=== PATIENT | female | born 1985 | race Caucasian/White ===

== ENCOUNTER 2024-03-01 06:47 | Emergency (ER) | payer BC ==
[~2024-03-01] VITALS: Ht 162.6 cm; Wt 63.6 kg
[2024-03-01 06:51] VITALS: TEMP 98.4
[2024-03-01] MEDS ORDERED: LR 1,000 ML IV ONE (07:15)
[2024-03-01] MEDS ORDERED: Morphine 4 MG/ML VIAL IV ONE (07:15)
[2024-03-01] MEDS ORDERED: Ondansetron 4 MG/2 ML VIAL IV ONE (07:15)
[2024-03-01 07:41] LABS: BASO # 0.1 K/mm3 (0.0-0.2); BASO % 0.5 % (0.0-2.0); EOS # 0.3 K/mm3 (0.0-0.7); GRAN # 8.9 K/mm3 (1.4-6.5); GRAN % 67.2 % (42.2-75.2); HEMOGLOBIN 13.5 g/dl (12.5-16.0); LYMPH # 3.2 K/mm3 (1.2-3.4); LYMPH % 24.1 % (20.0-51.0); MEAN CELL VOLUME 84 fl (80.0-100.0); MEAN CORPUSCULAR HEMOGLOBIN 28 pg (27-31); MEAN CORPUSCULAR HGB CONC 34 g/dl (33.0-37.0); MEAN PLATELET VOLUME 9.4 fl (7.4-10.4); MONO # 0.8 K/mm3 (0.1-0.6); MONO % 5.8 % (1.7-9.3); PLATELET COUNT 299 K/mm3 (130-400); RED BLOOD COUNT 4.75 M/mm3 (4.10-5.30); REDCELL DISTRIBUTION WIDTH-CV 12.8 % (11.5-14.5)
[2024-03-01 07:42] LABS: PH 6.5 (5.0-8.5); URINE APPEARANCE CLEAR (CLEAR/HAZY); URINE BLOOD NEGATIVE (NEGATIVE); URINE COLOR YELLOW (YELLOW); URINE GLUCOSE NEGATIVE (NEGATIVE); URINE KETONE NEGATIVE (NEGATIVE); URINE NITRATE NEGATIVE (NEGATIVE); URINE PROTEIN(semi-quant) NEGATIVE (NEGATIVE); URINE UROBILINOGEN 0.2 E.U/dL (0.2-1.0)
[2024-03-01 08:10] LABS: ALBUMIN 3.8 g/dL (3.5-5.0); C-REACTIVE PROTEIN 0.25 mg/dL (0.00-0.50); CALCIUM 9.4 mg/dL (8.4-10.2); CREATININE, serum 0.74 mg/dL (0.57-1.11); POTASSIUM 3.5 mEq/L (3.5-4.5); TOTAL PROTEIN 7.2 g/dl (6.2-8.1)
[2024-03-01 08:24] LABS: BILIRUBIN,TOTAL 0.2 mg/dL (0.2-1.2)
[2024-03-01 08:44] VITALS: BP 118/78; PULSE 73
[2024-03-01 09:17] LABS: COLLECTION METHOD CLEAN CATCH
== END 2024-03-01 09:02 | disposition home or self-care (01) ==
LOC: COL.ER 06:47
PROVIDERS: Family Medicine
DX: K80.50 Calculus of bile duct without cholangitis or cholecystitis without obstruction (principal); D72.829 Elevated white blood cell count, unspecified
CPT/HCPCS: J2270; J2405; J7120

== ENCOUNTER 2024-03-03 07:33 | Day surgery (SDC) | payer BC ==
[~2024-03-03] VITALS: Ht 160 cm; Wt 77.8 kg
[~2024-03-03 07:33] MED LIST: LR 1,000 ML IV SCH
[2024-03-03] MEDS ORDERED: Lidocaine PF 2% (20 MG/ML) 5 ML VIAL ONE (08:55)
[2024-03-03] MEDS ORDERED: fentaNYL 50 MCG/ML 2 ML VIAL ONE (08:55)
[2024-03-03] MEDS ORDERED: Rocuronium 50 MG/5 ML Multi-Dose VIAL ONE (08:57)
[2024-03-03 09:16] VITALS: BP 113/79; PULSE 72; TEMP 97.8
[2024-03-03] MEDS ORDERED: fentaNYL 50 MCG/ML 1 ML SYRINGE/VIAL [PACU/SDC ONLY] IV PRN (09:45)
[2024-03-03] MEDS ORDERED: HYDROmorphone 1 MG/1 ML SYRINGE [PACU/SDC ONLY] IV PRN (09:45)
[2024-03-03] MEDS ORDERED: Ondansetron 4 MG/2 ML VIAL IV PRN ×2 (09:45→10:15)
[2024-03-03] MEDS ORDERED: hydrALAZINE 20 MG/ML 1 ML VIAL IV PRN (09:45)
[2024-03-03] MEDS ORDERED: Ondansetron 4 MG/2 ML VIAL ONE (09:49)
[2024-03-03] MEDS ORDERED: NS 10 ML IV ONE (09:49)
[2024-03-03] MEDS ORDERED: dexAMETHasone 10 MG/ML VIAL ONE (09:49)
[2024-03-03] MEDS ORDERED: Glycopyrrolate 0.2 MG/ML 1 ML VIAL ONE (09:49)
[2024-03-03] MEDS ORDERED: Morphine 4 MG/ML VIAL IV PRN (10:15)
[2024-03-03] MEDS ORDERED: NORCO 325 MG-51 TAB PO (10:23)
[2024-03-03 10:57] VITALS: BP 126/81; PULSE 66; TEMP 97.1
[2024-03-03 11:12] VITALS: BP 119/78; PULSE 60
[2024-03-03 11:27] VITALS: BP 121/72; PULSE 64
[2024-03-03 11:42] VITALS: BP 115/74; PULSE 62
--- NOTE | 2024-03-03 11:55 | NUR ---
1057 RETURNS TO ROOM 7 PER CART WITH HOB ELEVATED 30 DEGREES. AWAKE, ALERT. RESP UNLABORED. AT SIDE, ASSISTS WITH BASIC TRANSLATION. VITAL SIGNS OBTAINED. ABD SOFT. BANDAIDS X 3 SITES CLEAN DRY AND INTACT. RATES DISCOMFORT 3/10. CALL LIGHT AT SIDE. 1110 REPOSITIONS ON CART. HOB ELEVATED 60 DEGREES. TOLERATES PO JUICE WITHOUT NAUSEA. 1125 DOZES AT INTERVALS. AROUSES SPONTANEOUSLY. CONVERSES WITH 1135 DISCHARGE INSTRUCTIONS REVIEWED WITH PATIENT AND WITH USE OF VOBrightkitE INTERPRETOR. BOTHVERBALIZE UNDERSTANDING. OPPORTUNITY FOR QUESTIONS PROVIDED. COPY OF INSTRUCTIONS PROVIDED IN DISCHARGE FOLDER. STATES THEY HAVE FRIENDS WHOM WILL REVIEW WRITTEN INSTRUCTIONS WITH THEM AFTER DISCHARGE IF NEEDED. 1150 SITS ON EDGE OF BED. DRESSES WITH ASSIST FROM BELÉN. DENIES NAUSEA OR INCREASED DISCOMFORT WITH ACTIVITY.
== END 2024-03-03 11:58 | disposition home or self-care (01) ==
LOC: SDCO 07:33
DX: K80.12 Calculus of gallbladder with acute and chronic cholecystitis without obstruction (principal)
CPT/HCPCS: J0690; J1100; J1170; J2405; J2704; J3010